=== PATIENT | female | born 1990 | race Two or more races ===

== ENCOUNTER 2023-01-09 08:58 | Outpatient (CLI) | payer OTHER | END 2023-01-09 09:11 | disposition home or self-care (01) | LOC: SONOGRAMA 08:58 | DX: Z31.41 Encounter for fertility testing (principal) ==

== ENCOUNTER 2024-07-20 12:54 | Inpatient (IN) | payer OTHER ==
[~2024-07-20] VITALS: Ht 157.5 cm; Wt 3.2 kg
[2024-07-20] MEDS ORDERED: NIFEDIPINE20 MG PO (14:09)
[2024-07-20] MEDS ORDERED: SYNTHROID75 MCG PO (14:09)
[2024-07-20] MEDS ORDERED: INTEGRA PLUS C1 EACH PO (14:10)
[2024-07-20 14:51] LABS: RH POSITIVE
[2024-07-25 04:05] VITALS: BP 108/75
[2024-07-25] MEDS ORDERED: RINGERS SOLUTION,LACTATED 1,000 ML IV SCH (05:00)
[2024-07-25 06:07] VITALS: BP 91/61; O2SAT 98
[2024-07-25] MEDS ORDERED: CEFAZOLIN SODIUM 1,000 MG VIAL ONE (07:10)
[2024-07-25] MEDS ORDERED: OXYTOCIN 10 UNITS/ML VIAL ONE ×2 (07:13→11:50)
[2024-07-25] MEDS ORDERED: ERYTHROMYCIN BASE OPHT 1GM EACH TUBE OP ONE (07:15)
[2024-07-25] MEDS ORDERED: CARBOPROST TROMETHAMINE 250 MCG/ML AMPUL IM ONE (08:18)
[2024-07-25] MEDS ORDERED: CEFAZOLIN SODIUM 1,000 MG VIAL IV SCH ×2 (08:45→18:00)
[2024-07-25] MEDS ORDERED: HEMOSTATIC MATRIX 1 KIT KIT TOP ONE (09:15)
[2024-07-25] MEDS ORDERED: MORPHINE SULFATE 4 MG/ML VIAL IV ONE ×2 (10:20→10:50)
[2024-07-25 12:22] VITALS: BP 108/69
[2024-07-25 12:50] LABS: HEMATOCRIT 35.9 % (36.0-45.00); HEMOGLOBIN 12.2 g/dL (12.0-15.00); MEAN CELL VOLUME 79.9 fL (80.00-100.00); MEAN CORPUSCULAR HEMOGLOBIN 27.1 pg (27.00-32.0); PLATELET COUNT 250 K/uL (150-450); RED BLOOD COUNT 4.49 M/uL (4.00-6.00); RED CELL DISTRIBUTION WIDTH 16.2 % (11.5-14.5)
[2024-07-25] MEDS ORDERED: MEPERIDINE HCL/PF 25 MG/ML VIAL IM SCH (13:45)
[2024-07-25] MEDS ORDERED: OXYTOCIN 40 UNITS in RINGERS SOLUTION,LACTATED 1,000 ML IV SCH (13:45)
[2024-07-25 16:00] VITALS: BP 102/66
[2024-07-25] MEDS ORDERED: KETOROLAC TROMETHAMINE 30 MG VIAL IV SCH (17:00)
[2024-07-25] MEDS ORDERED: PROMETHAZINE HCL 50 MG/ML AMPUL IM SCH (18:00)
[2024-07-25 23:30] VITALS: BP 95/60
[2024-07-26] MEDS ORDERED: LEVOTHYROXINE SODIUM 75 MCG TABLET PO SCH (06:00)
[2024-07-26] MEDS ORDERED: NAPROXEN 500 MG TABLET PO SCH (09:00)
[2024-07-26] MEDS ORDERED: DILTIAZEM HCL 180 MG CAP.SR.24H PO SCH (17:00)
[2024-07-26] MEDS ORDERED: FAMOTIDINE/PF 20 MG/2 ML VIAL IV ONE (18:53)
[2024-07-27] VITALS: BP 100/63
[2024-07-27 08:55] VITALS: BP 108/69
[2024-07-27] MEDS ORDERED: NAPROXEN 500 MG TABLET PO ONE (10:33)
== END 2024-07-27 13:31 | disposition home or self-care (01) | DRG 788 ==
LOC: OB/GYN 07-25 03:59 → LDR 07-25 03:59 → O/R 07-25 08:54 → OB/GYN 07-25 11:30
PROVIDERS: ADMIT Specialist; ATTEND Specialist
PROC: 4A1HXCZ Monitoring of Products of Conception, Cardiac Rate, External Approach (ICD-10-PCS; 2024-07-25)
PROC: 10D00Z1 Extraction of Products of Conception, Low, Open Approach (ICD-10-PCS; principal; 2024-07-25 08:30)
DX: O34.211 Maternal care for low transverse scar from previous cesarean delivery (principal); O99.892 Other specified diseases and conditions complicating childbirth; N73.6 Female pelvic peritoneal adhesions (postinfective); Z3A.38 38 weeks gestation of pregnancy; Z37.0 Single live birth